=== PATIENT | female | born 1955 | race Caucasian/White ===

== ENCOUNTER → 2016-09-21 | Outpatient (CLI) | payer OTHER ==
--- NOTE | 2016-09-27 10:20 | MM ---
Reason for exam: screening (asymptomatic). Last mammogram was performed 5 years and 8 months ago. History: Patient is postmenopausal. Took hormonal contraceptives for 2 years. Physical Findings: A clinical breast exam by your physician is recommended on an annual basis and results should be correlated with mammographic findings. MG Screening Mammo w CAD Bilateral CC and MLO view(s) were taken. Prior study comparison: January 11, 2011, mammogram, performed at [place]. December 29, 2009, mammogram. The breast tissue is heterogeneously dense. This may lower the sensitivity of mammography. Finding: There are typically benign grouped, round, linear calcifications in the middle position of the right breast. There is no discrete abnormality. ASSESSMENT: Benign, BI-RAD 2 RECOMMENDATION: Routine screening mammogram of both breasts in 1 year.
== END | disposition home or self-care (01) ==
LOC: RADMAMWWP 09:12
PROVIDERS: ATTEND Family Medicine
DX: Z12.31 Encounter for screening mammogram for malignant neoplasm of breast (principal)

== ENCOUNTER → 2017-09-28 | Outpatient (CLI) | payer OTHER ==
--- NOTE | 2017-09-30 10:59 | MM ---
Reason for exam: screening (asymptomatic). Last mammogram was performed 1 year ago. History: Patient is postmenopausal. Took hormonal contraceptives for 2 years. Physical Findings: A clinical breast exam by your physician is recommended on an annual basis and results should be correlated with mammographic findings. MG 3D Screening Mammo W/Cad Bilateral CC and MLO view(s) were taken. Prior study comparison: September 21, 2016, bilateral MG screening mammo w CAD. January 11, 2011, mammogram, performed at [place]. The breast tissue is heterogeneously dense. This may lower the sensitivity of mammography. No significant changes when compared with prior studies. ASSESSMENT: Benign, BI-RAD 2 RECOMMENDATION: Routine screening mammogram of both breasts in 1 year.
== END | disposition home or self-care (01) ==
LOC: RADMAMWWP 07:11
PROVIDERS: ATTEND Family Medicine
DX: Z12.31 Encounter for screening mammogram for malignant neoplasm of breast (principal)
CPT/HCPCS: 77063; 77067

== ENCOUNTER → 2018-12-18 | Outpatient (CLI) | payer OTHER ==
--- NOTE | 2018-12-18 12:34 | BD ---
EXAMINATION TYPE: Axial Bone Density DATE OF EXAM: 12/18/2018 COMPARISON: NONE CLINICAL HISTORY: Postmenopausal female Height: 62 Weight: 124 FRAX RISK QUESTIONS: Alcohol (3 or more units per day): no Family History (Parent hip fracture): yes, father Glucocorticoids (More than 3mos): no (Ex: prednisone, prednisolone, methylprednisolone, dexamethasone, and hydrocortisone). History of Fracture in Adulthood: no Secondary Osteoporosis: 1. Type 1 Diabetes: no 2. Hyperthyroidism: no 3. Menopause before 45: no 4. Malnutrition: no 5. Chronic liver disease: no Rheumatoid Arthritis: no Current Tobacco Use: no RISK FACTORS HISTORY OF: Family History of Osteoporosis: yes Active: yes Diet low in dairy products/other sources of calcium: no Postmenopausal woman: yes Take estrogen and/or progesterone medications: not now How long: Hormonal contraceptives about 2 years Lost more than 2 inches in height since high school: no Frequent falls: no Poor Health: no Hyperparathyroidism: no Adrenal Insufficiency: no MEDICATIONS: Prednisone or other steroids: no Thyroid Medications: no Osteoporosis Medications: no Additional Medications: Additional History: EXAM MEASUREMENTS: Bone mineral densitometry was performed using the [employer] System. Bone mineral density as measured about the Lumbar spine is: ----- L1-L4(G/cm2): 1.217 T Score Values are as follows: ----- L2: -0.5 ----- L3: 1.9 ----- L4: 0.8 ----- L1-L4: 0.3 Bone mineral density BASELINE Bone mineral density about the R hip (g/cm2): 0.968 Bone mineral density about the L hip (g/cm2): 0.932 T Score values are as follows: -----R Neck: -0.5 -----L Neck: -0.8 -----R Total: 0.3 -----L Total: -1.4 Bone mineral density BASELINE IMPRESSION: Osteopenia (T Score between -2.5 and -1). There is slightly increased risk of fracture and the patient may be considered for treatment. Re-Screen 2-5 years. NOTE: T-SCORE=SD OF THE YOUNG ADULT MEAN.
--- NOTE | 2018-12-19 10:26 | MM ---
Reason for exam: screening (asymptomatic). Last mammogram was performed 1 year and 3 months ago. History: Patient is postmenopausal. Took hormonal contraceptives for 2 years. Physical Findings: A clinical breast exam by your physician is recommended on an annual basis and results should be correlated with mammographic findings. MG 3D Screening Mammo W/Cad Bilateral CC and MLO view(s) were taken. Prior study comparison: September 28, 2017, bilateral MG 3d screening mammo w/cad. September 21, 2016, bilateral MG screening mammo w CAD. The breast tissue is heterogeneously dense. This may lower the sensitivity of mammography. Finding: There are typically benign round, linear calcifications in the right breast. There is no discrete abnormality. ASSESSMENT: Benign, BI-RAD 2 RECOMMENDATION: Routine screening mammogram of both breasts in 1 year.
== END | disposition home or self-care (01) ==
LOC: RADMAMWWP 09:55
PROVIDERS: ATTEND Family Medicine
DX: Z12.31 Encounter for screening mammogram for malignant neoplasm of breast (principal); M85.80 Other specified disorders of bone density and structure, unspecified site; E55.9 Vitamin D deficiency, unspecified
CPT/HCPCS: 77063; 77067; 77080

== ENCOUNTER → 2020-03-05 | Outpatient (CLI) | payer MEDICARE ==
--- NOTE | 2020-03-07 10:21 | MM ---
Reason for exam: screening (asymptomatic). Last mammogram was performed 1 year and 2 months ago. History: Patient is postmenopausal. Took hormonal contraceptives for 2 years. Physical Findings: A clinical breast exam by your physician is recommended on an annual basis and results should be correlated with mammographic findings. MG 3D Screening Mammo W/Cad Bilateral CC and MLO view(s) were taken. Prior study comparison: December 18, 2018, bilateral MG 3d screening mammo w/cad. September 28, 2017, bilateral MG 3d screening mammo w/cad. The breast tissue is heterogeneously dense. This may lower the sensitivity of mammography. No significant changes when compared with prior studies. ASSESSMENT: Benign, BI-RAD 2 RECOMMENDATION: Routine screening mammogram of both breasts in 1 year.
== END | disposition home or self-care (01) ==
LOC: RADMAMWWP 15:13
PROVIDERS: ATTEND Family Medicine
DX: Z12.31 Encounter for screening mammogram for malignant neoplasm of breast (principal)
CPT/HCPCS: 77063; 77067

== ENCOUNTER 2021-02-16 09:15 | Observation (INO) | payer MEDICARE ==
--- NOTE | 2021-02-16 09:36 | ED ---
Chest Pain HPI - General Chief Complaint: Chest Pain Stated Complaint: chest pain Source: patient Mode of arrival: EMS Limitations: no limitations - History of Present Illness Initial Comments: Patient is a 65 old previously healthy female presents emergency room with a portal chest pain. She states that she ran a 5K this past week and a felt a little bit fatigued from it. Reports that she woke this morning began having some substernal chest pain with associated shortness of breath. Pain is located over the left chest without radiation. Started around 7 AM. EMS was called. They did provide her with 481 mg aspirins and 3 nitro. States that she did have improvement to her pain with the nitro administration. She denies previous history of cardiac disease. States that she's never had an EKG or stress test. She denies ripping or tearing sensation or back. No fevers, chills or cough. No other alleviating, precipitating or modifying factors - Related Data Home Medications Medication Instructions Recorded Confirmed Multivitamins, Thera [Multivitamin 1 tab PO DAILY 02/16/21 02/16/21 (formulary)] Allergies Allergy/AdvReac Type Severity Reaction Status Date / Time No Known Allergies Allergy Verified 02/16/21 12:11 Review of Systems ROS Statement: Those systems with pertinent positive or pertinent negative responses have been documented in the HPI. ROS Other: All systems not noted in ROS Statement are negative. EKG Findings - EKG Comments: EKG Findings:: EKG demonstrates a sinus rhythm with a ventricular rate of 64. CT interval 152. QRS 80. QTC of 418. No acute ST segment elevations or depressions. Inverted T-wave in lead 3 Past Medical History Past Medical History: No Reported History History of Any Multi-Drug Resistant Organisms: None Reported Past Surgical History: No Surgical Hx Reported Past Psychological History: No Psychological Hx Reported Smoking Status: Never smoker Past Alcohol Use History: Rare Past Drug Use History: None Reported General Exam Limitations: no limitations Course Vital Signs 02/16/21 02/16/21 02/16/21 09:16 09:25 10:00 Temperature 98.4 F Pulse Rate 70 67 68 Respiratory 18 17 12 Rate Blood Pressure 128/84 128/84 O2 Sat by Pulse 99 99 Oximetry 02/16/21 11:36 Temperature Pulse Rate 67 Respiratory 18 Rate Blood Pressure 142/84 O2 Sat by Pulse 100 Oximetry Chest Pain MDM - MDM Upon arrival patient is placed in room 17. Thorough history and physical exam is performed. 12-lead EKG was obtained. Patient placed on continuous pulse ox and cardiac monitoring. Laboratory studies were conducted. Troponin is negative. Chest x-ray to [facility] to acute process. Due to the patient's heart score being 3, I did recommend hospitalization. Patient agreed to this. Called and spoke with Dr. Stone who agreed to admit the patient. We will trend the patient's troponins and order an echo as well as cardiology consult. Patient agreed to the treatment plan and is awaiting a bed on the floor Disposition Clinical Impression: Chest pain Disposition: ADMITTED IP TO THIS HOSP Condition: Stable Is patient prescribed a controlled substance at d/c from ED?: No Decision to Admit Reason: Admit from EC Decision Date: 02/16/21 Decision Time: 11:23
[2021-02-16 09:54] LABS: Basophils % (A) 1 %; Eosinophils # (A) 0.1 k/uL (0-0.7); Eosinophils % (A) 2 %; HCT 40.3 % (34.0-46.0); HGB 13.6 gm/dL (11.4-16.0); Lymphocytes # (A) 1.8 k/uL (1.0-4.8); Lymphocytes % (A) 32 %; MCH 30.2 pg (25.0-35.0); MCHC 33.8 g/dL (31.0-37.0); MCV 89.3 fL (80.0-100.0); Mean Platelet Volume 7.4; Monocytes # (A) 0.3 k/uL (0-1.0); Monocytes % (A) 5 %; Neutrophils # (A) 3.3 k/uL (1.3-7.7); Neutrophils % (A) 59 %; Platelet Count 247 k/uL (150-450); RBC 4.51 m/uL (3.80-5.40); RDW 12.8 % (11.5-15.5); WBC 5.6 k/uL (3.8-10.6)
[2021-02-16 10:08] LABS: ALT 17 U/L (4-34); AST 26 U/L (14-36); African American GFR (CKD) >90 (>60 ml/min/1.73 sqM); Alkaline Phosphatase 87 U/L (38-126); Anion Gap 10 mmol/L; Blood Urea Nitrogen 19 mg/dL (7-17); Calcium 9.8 mg/dL (8.4-10.2); Carbon Dioxide 20 mmol/L (22-30); Chloride 109 mmol/L (98-107); Glucose 119 mg/dL (74-99); Lipase 120 U/L (23-300); Magnesium 1.9 mg/dL (1.6-2.3); Non-African American GFR(CKD) >90 (>60 ml/min/1.73 sqM); Potassium 4.3 mmol/L (3.5-5.1); Sodium 139 mmol/L (137-145); Total Bilirubin 0.5 mg/dL (0.2-1.3); Total Protein 6.8 g/dL (6.3-8.2)
[2021-02-16 10:09] LABS: INR 0.9 (<1.2); Partial Thromboplastin Time 23.7 sec (22.0-30.0)
--- NOTE | 2021-02-16 10:10 | XR ---
EXAMINATION TYPE: XR chest 2V DATE OF EXAM: 02/16/2021 COMPARISON: NONE HISTORY: Shortness of breath TECHNIQUE: Frontal and lateral views of the chest are obtained. FINDINGS: Scattered senescent parenchymal changes noted. Hyperinflation compatible with COPD. No evidence for infiltrate. No evidence for atelectasis. Heart size is stable. Mediastinal structures are stable and grossly unremarkable. No evidence for hilar prominence. Degenerative changes dorsal spine. IMPRESSION: 1. No evidence for acute pulmonary disease.
[2021-02-16] MEDS ORDERED: NALOXONE 0.4 MG/ML 1 ML VIAL IV PRN (11:24)
[2021-02-16] MEDS ORDERED: NITROGLYCERIN OINT 1 INCH/GM PACKET TOPICAL STA (11:25)
--- NOTE | 2021-02-16 12:14 | P.HPIM ---
History of Present Illness Patient developed pleasant 65-year-old female came in with complaints of chest pain which started today moderate the pain pressure-like sensation which started today morning reviewed by nitroglycerin. Patient is reactive medical problems patient did have a psychiatry and yesterday without any chest pain. Patient chest pain is substernal may have mild weakness in the left arm without any tingling numbness or pain in the left arm. Patient was also complaining of lightheadedness along with some mild shortness of breath and fatigue. Patient did eat around the time but doesn't believe the food has contributed to her chest pain patient just pain is nonpruritic. Patient does have some T-wave inversions in lead 3 no previous EKGs to compare with. Chest x-ray did not show any significant abnormality d-dimer is within normal limits. Troponin is negative. Patient is being admitted to rule out any acute coronary syndromes w [facility] cardiology consultation. Family history of coronary artery disease in her mother with first heart attack in her 60s REVIEW OF SYSTEMS: CONSTITUTIONAL: No fever, no malaise, no fatigue. HEENT: No recent visual problems or hearing problems. Denied any sore throat. CARDIOVASCULAR: No chest pain, orthopnea, PND, no palpitations, no syncope. PULMONARY: No shortness of breath, no cough, no hemoptysis. GASTROINTESTINAL: No diarrhea, no nausea, no vomiting, no abdominal pain. NEUROLOGICAL: No headaches, no weakness, no numbness. HEMATOLOGICAL: Denies any bleeding or petechiae. GENITOURINARY: Denies any burning micturition, frequency, or urgency. MUSCULOSKELETAL/RHEUMATOLOGICAL: Denies any joint pain, swelling, or any muscle pain. ENDOCRINE: Denies any polyuria or polydipsia. The rest of the 14-point review of systems is negative. PHYSICAL EXAMINATION: GENERAL: The patient is alert and oriented x3, not in any acute distress. Well developed, well nourished. HEENT: Pupils are round and equally reacting to light. EOMI. No scleral icterus. No conjunctival pallor. Normocephalic, atraumatic. No pharyngeal erythema. No thyromegaly. CARDIOVASCULAR: S1 and S2 present. No murmurs, rubs, or gallops. PULMONARY: Chest is clear to auscultation, no wheezing or crackles. ABDOMEN: Soft, nontender, nondistended, normoactive bowel sounds. No palpable organomegaly. MUSCULOSKELETAL: No joint swelling or deformity. EXTREMITIES: No cyanosis, clubbing, or pedal edema. NEUROLOGICAL: Gross neurological examination did not reveal any focal deficits. SKIN: No rashes. Assessment and plan -Chest pressure: We will rule out acute chronic syndromes., Patient will be evaluated by cardiology, patient is a nitro paste which will be continued. Echocardiac exam was ordered. We will obtain 2 more sets of troponins and EKGs. We cannot rule out a ruptured plaque because of her exertion yesterday. -Mild hyperchloremic metabolic acidosis: No further intervention at this time. DVT prophylaxis: Early ambulation Past Medical History Past Medical History: No Reported History History of Any Multi-Drug Resistant Organisms: None Reported Past Surgical History: No Surgical Hx Reported Past Psychological History: No Psychological Hx Reported Smoking Status: Never smoker Past Alcohol Use History: Rare Past Drug Use History: None Reported Medications and Allergies Home Medications Medication Instructions Recorded Confirmed Type Multivitamins, Thera [Multivitamin 1 tab PO DAILY 02/16/21 02/16/21 History (formulary)] Allergies Allergy/AdvReac Type Severity Reaction Status Date / Time No Known Allergies Allergy Verified 02/16/21 12:11 Physical Exam Vitals: Vital Signs Temp Pulse Resp BP Pulse Ox 02/16/21 11:36 67 18 142/84 100 02/16/21 10:00 68 12 128/84 99 02/16/21 09:25 67 17 02/16/21 09:16 98.4 F 70 18 128/84 99 Intake and Output 02/15/21 02/16/21 02/16/21 22:59 06:59 14:59 Other: Weight 56.699 kg Results CBC & Chem 7: 02/16/21 09:43 02/16/21 09:43 Labs: Abnormal Lab Results - Last 24 Hours (Table) 02/16/21 Range/Units 09:43 Chloride 109 H (98-107) mmol/L Carbon Dioxide 20 L (22-30) mmol/L BUN 19 H (7-17) mg/dL Glucose 119 H (74-99) mg/dL
[2021-02-17] MEDS ORDERED: ASPIRIN 81 MG PO SCH (09:00)
--- NOTE | 2021-02-17 09:50 | P.CRDCN ---
History of Present Illness Consult date: 02/17/21 History of present illness: HISTORY OF PRESENT ILLNESS: This is a 65 year old female with significant past medical history. 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 We have been asked to see the patient in consultation for chest pain. Patient examined at the bedside. Patient states she is usually very active and is a runner. She states she ran a 5K on Tuesday. On Tuesday she began having some chest pressure and shortness of breath and thought maybe it was secondary to running the day before so she just relaxed at home for the day. She states she woke up on Tuesday morning with a lot of chest heaviness and left arm weakness. She reported feeling very short of breath as well. She states she felt lightheaded. She denied any nausea or vomiting. She called EMS and was given aspirin and nitro in route to the hospital which relieved her pain. She states the pain was not worse with deep inspiration. She does not have pain upon chest wall palpation. She reports a family history of coronary artery disease and states her mother underwent open heart surgery when she was in her 50s. EKG reveals sinus mechanism with nonspecific ST-T wave changes Chest xray negative for acute process Laboratory data: WBC 5.6. Hemoglobin 13.6. Platelet count 247. D-dimer 0.29. Sodium 139. Potassium 4.3. BUN 19. Creatinine 0.60. Troponin negative 3. Current home cardiac medications include none REVIEW OF SYSTEMS: At the time of my exam: CONSTITUTIONAL: Denies fever or chills. HEENT: Denies blurred vision, vision changes, or eye pain. Denies hemoptysis CARDIOVASCULAR: Denies chest pain. Denies orthopnea. Denies PND. Denies palpitations RESPIRATORY: Denies shortness of breath. GASTROINTESTINAL: Denies abdominal pain. Denies nausea or vomiting. HEMATOLOGIC: Denies bleeding disorders. GENITOURINARY: Denies any blood in urine. SKIN: Denies pruitis. Denies rash. PHYSICAL EXAM: VITAL SIGNS: Reviewed. GENERAL: Well-developed in no acute distress. HEENT: Head is normocephalic. Pupils are equal, round. Sclerae anicteric. Mucous membranes of the mouth are moist. Neck supple. No JVD or thyromegaly LUNGS: Respirations even and unlabored. Lungs essentially clear to auscultation bilaterally. HEART: Regular rate and rhythm. S1 and S2 heard. ABDOMEN: Soft. Nondistended. Nontender. EXTREMITIES: Normal range of motion. No clubbing or cyanosis. Peripheral pulses intact. No lower extremity edema NEUROLOGIC: Awake and alert. Oriented x 3. ASSESSMENT: Chest pain, troponins negative 3 Family history of premature coronary artery disease PLAN: An acute coronary event has been ruled out Obtain 2D echo to assess cardiac structure and function Patient to undergo stress echo today to assess for stress induced ischemia Further recommendations pending patient course Nurse practitioner note has been reviewed by physician. Signing provider agrees with the documented findings, assessment, and plan of care. Past Medical History Past Medical History: No Reported History History of Any Multi-Drug Resistant Organisms: None Reported Past Surgical History: No Surgical Hx Reported Additional Past Anesthesia/Blood Transfusion Reaction / Comment(s): unknown Past Psychological History: No Psychological Hx Reported Smoking Status: Never smoker Past Alcohol Use History: Rare Past Drug Use History: None Reported Medications and Allergies Home Medications Medication Instructions Recorded Confirmed Type Multivitamins, Thera [Multivitamin 1 tab PO DAILY 02/16/21 02/16/21 History (formulary)] Allergies Allergy/AdvReac Type Severity Reaction Status Date / Time No Known Allergies Allergy Verified 02/16/21 12:11 Physical Exam Vitals: Vital Signs Temp Pulse Pulse Resp BP BP Pulse Ox 02/17/21 01:36 67 18 02/17/21 01:12 97.7 F 68 18 135/72 98 02/16/21 21:30 67 18 02/16/21 19:30 97.8 F 67 18 148/80 100 02/16/21 17:42 98.1 F 67 18 149/83 100 02/16/21 11:36 67 18 142/84 100 02/16/21 10:00 68 12 128/84 99 02/16/21 09:25 67 17 02/16/21 09:16 98.4 F 70 18 128/84 99 Intake and Output 02/16/21 02/17/21 02/17/21 22:59 06:59 14:59 Other: Voiding Method Toilet Toilet # Voids 1 2 Results 02/16/21 09:43 02/16/21 09:43 Cardiac Enzymes 02/16/21 02/16/21 02/16/21 Range/Units 09:43 09:43 12:10 AST 26 (14-36) U/L Troponin I <0.012 <0.012 (0.000-0.034) ng/mL 02/16/21 Range/Units 15:18 AST (14-36) U/L Troponin I <0.012 (0.000-0.034) ng/mL Coagulation 02/16/21 Range/Units 09:43 PT 10.0 (9.0-12.0) sec APTT 23.7 (22.0-30.0) sec CBC 02/16/21 Range/Units 09:43 WBC 5.6 (3.8-10.6) k/uL RBC 4.51 (3.80-5.40) m/uL Hgb 13.6 (11.4-16.0) gm/dL Hct 40.3 (34.0-46.0) % Plt Count 247 (150-450) k/uL Comprehensive Metabolic Panel 02/16/21 Range/Units 09:43 Sodium 139 (137-145) mmol/L Potassium 4.3 (3.5-5.1) mmol/L Chloride 109 H (98-107) mmol/L Carbon Dioxide 20 L (22-30) mmol/L BUN 19 H (7-17) mg/dL Creatinine 0.60 (0.52-1.04) mg/dL Glucose 119 H (74-99) mg/dL Calcium 9.8 (8.4-10.2) mg/dL AST 26 (14-36) U/L ALT 17 (4-34) U/L Alkaline Phosphatase 87 (38-126) U/L Total Protein 6.8 (6.3-8.2) g/dL Albumin 4.0 (3.5-5.0) g/dL Current Medications Generic Name Dose Route Start Last Admin Trade Name Freq PRN Reason Stop Dose Admin Naloxone HCl 0.2 mg 02/16/21 11:24 Naloxone 0.4 Mg/Ml 1 Ml Vial IV Q2M PRN Opioid Reversal Intake and Output 02/16/21 02/17/21 02/17/21 22:59 06:59 14:59 Other: Voiding Method Toilet Toilet # Voids 1 2 02/16/21 09:43 02/16/21 09:43
[2021-02-17 11:20] LABS: African American GFR (CKD) >90 (>60 ml/min/1.73 sqM); Anion Gap 7 mmol/L; Blood Urea Nitrogen 20 mg/dL (7-17); Calcium 9.7 mg/dL (8.4-10.2); Carbon Dioxide 28 mmol/L (22-30); Chloride 105 mmol/L (98-107); Glucose 98 mg/dL (74-99); Non-African American GFR(CKD) >90 (>60 ml/min/1.73 sqM); Potassium 4.4 mmol/L (3.5-5.1); Sodium 140 mmol/L (137-145)
[2021-02-17 13:37] VITALS: RESP 16
[2021-02-17 14:02] VITALS: BP 132/82; PULSE 75; TEMP 97.9
--- NOTE | 2021-02-17 14:03 | ECHOS ---
STRESS ECHOCARDIOGRAM DATE OF PROCEDURE: 02/17/2021 INDICATIONS: Chest pain. BASELINE HEART RATE: 65 BASELINE BLOOD PRESSURE: 117/63 MAXIMUM HEART RATE: 163 MAXIMUM BLOOD PRESSURE: 246/74 85% MPHR: 130 100% MPHR: 153 METS: 13.5 MAXIMUM STAGE REACHED: 5 TOTAL EXERCISE TIME: 13:19 CLINICAL INFORMATION: STRESS DATA: Heart rate 65, pressure 117/63 mmHg. Baseline EKG showed sinus mechanism. The patient exercised on the treadmill according to Kian protocol for a total of 13 minutes and achieved 13.5 METs. Max heart rate was 163, which is about 100% of maximum predicted heart rate, and maximum blood pressure was 214/75 mmHg. Clinically the patient had no symptoms. The EKG did not show any significant ST or T-wave abnormalities concerning for ischemia. CONCLUSION: 1. Excellent exercise tolerance. 2. No symptoms of chest pain or chest discomfort in response to exercise. 3. Excellent augmentation in the heart rate and blood pressure in response to exercise. 4. Normal EKG in response to exercise. MMODL / IJN: [id number] /
--- NOTE | 2021-02-18 13:30 | ECHOF ---
Referral Reason:chest pain MEASUREMENTS -------- HEIGHT: 157.5 cm WEIGHT: 56.7 kg BP: RVIDd: 2.2 cm (< 3.3) IVSd: 1.0 cm (0.6 - 1.1) LVIDd: 3.8 cm (3.9 - 5.3) LVPWd: 1.1 cm (0.6 - 1.1) IVSs: 1.4 cm LVIDs: 2.3 cm LVPWs: 1.6 cm LA Diam: 3.0 cm (2.7 - 3.8) LAESV Index (A-L): 32.68 ml/m Ao Diam: 2.4 cm (2.0 - 3.7) AV Cusp: 1.7 cm (1.5 - 2.6) LA Diam: 3.2 cm (2.7 - 3.8) MV EXCURSION: 15.792 mm (> 18.000) MV EF SLOPE: 50 mm/s (70 - 150) EPSS: 0.2 cm MV E Piter: 0.62 m/s MV DecT: 225 ms MV A Piter: 0.89 m/s MV E/A Ratio: 0.70 AR PHT: 510 ms RAP: 5.00 mmHg RVSP: 32.79 mmHg FINDINGS -------- Sinus rhythm. This was a technically good study. LV size, wall thickness and systolic function are normal, with an EF greater than 55%. The left manny tricular size is normal. The right ventricle is normal in size. LA is midly dilated 29-33ml/m2. The right atrial size is normal. There is mild aortic regurgitation. Mild mitral annular calcification present. Mild mitral regurgitation is present. Mild tricuspid regurgitation present. Right ventricular systolic pressure is normal at < 35 mmHg. There is no pulmonic regurgitation present. There is no pericardial effusion. CONCLUSIONS -------- 1. LV size, wall thickness and systolic function are normal, with an EF greater than 55%. 2. The left ventricular size is normal. 3. The right ventricle is normal in size. 4. LA is midly dilated 29-33ml/m2. 5. The right atrial size is normal. 6. There is mild aortic regurgitation. 7. Mild mitral annular calcification present. 8. Mild mitral regurgitation is present. 9. Mild tricuspid regurgitation present. 10. There is no pulmonic regurgitation present. 11. There is no pericardial effusion. DUST MOP MAKER: Yamilex Berrios RDCS
--- NOTE | 2021-02-18 15:47 | P.DS ---
Providers Date of admission: 02/16/21 11:25 Attending physician: Melissa Saravia Primary care physician: Dylan Ho [facility] Course: Final diagnoses -Chest pressure, troponins negative 3, acute coronary syndrome has been ruled out -We cannot rule out a ruptured plaque because of her exertion yesterday. -Mild hyperchloremic metabolic acidosis: No further intervention at this time. Chest pain troponins negative 3 Family history of premature coronary artery disease Mild hyperchloremic metabolic acidosis - no further intervention Acute coronary syndrome has been ruled out Discharge Disposition Patient is discharged home after a negative stress test in stable condition. Patient will f/u with cardiology associates and her PCP. Patient is given a script for a BMP in 2 days. Hospital course This is a pleasant 65 year old female admitted to the ER with complaints of chest pressure after running a 5k marathon. Complex of chest pain started on 02/16/2021, pain was moderate in nature pressure-like sensation, substernal, did not radiate to the arm, negative for tingling or numbness from his which was relieved with nitroglycerin. Patient does not have any significant PMH, and has only been hospitalized for childbirth in the past. She does not take any current medications. Pt does have a family history of premature heart disease, her mother had coronary artery bypass at the age of 60. Patient was evaluated in the ER, chest xray was negative. Serial troponins were negative x 3 values. Patient had an echocardiogram that revealed an EF of. Patient is a lifelong non-smoker. Patient does have some T-wave inversions in lead 3, no previous EKG to compare with. Chest x-ray did not reveal any significant abnormality, d-dimer is within normal limits. Patient underwent a stress echocardiogram that revealed excellent exercise tolerance, no symptoms of chest pain or chest discomfort in response to exercise, excellent augmentation heart rate and blood pressure response to exercise, normal EKG response to exercise. Patient was cleared by cardiology for discharge. Vital signs have remained stable this admission, afebrile, heart rate sinus rhythm 70s, blood pressure 132/82, 99% on room air. Patient's chemistry, metabolic, coagulation panels were all within normal limits. 02/17/2021 Patient is evaluated today sitting up in a chair, denies any current chest pain. She denies any headache, vision changes, jaw pain, arm pain, nausea, vomiting, shortness of breath, cough. Patient states that the chest pressure is diminishing in quality, and denies arm pain at this time. Vital signs remained stable, troponins negative 3. Patient had a stress echo completed today and was negative, patient was cleared by cardiology services for discharge. Patient's lungs remain clear, S1-S2 auscultated, negative for any peripheral edema. Patient will be discharged home and follow-up with her PCP. Thank you for allowing us to participate in the care of this patient. Please see medication reconciliation for a list of current medications Patient Condition at Discharge: Stable Plan - Discharge Summary Discharge Rx Participant: No New Discharge Prescriptions: Continue Multivitamins, Thera [Multivitamin (formulary)] 1 tab PO DAILY Discharge Medication List Multivitamins, Thera [Multivitamin (formulary)] 1 tab PO DAILY 02/16/21 [History] Follow up Appointment(s)/Referral(s): Gabino Domingo MD [STAFF PHYSICIAN] - 2 Weeks Dylan Ho DO [Primary Care Provider] - 02/20/21 3:20 pm ([place] [facility] with Ivette) Patient Instructions/Handouts: Noncardiac Chest Pain (DC) Discharge Disposition: HOME SELF-CARE
== END 2021-02-17 14:44 | disposition home or self-care (01) ==
LOC: EC 09:15 → 6NMEDSUR 11:25
PROVIDERS: ADMIT Hospitalist; ATTEND Hospitalist
DX: R07.89 Other chest pain (principal); R06.02 Shortness of breath; R42 Dizziness and giddiness; E87.2 Acidosis; Z20.822 Contact with and (suspected) exposure to COVID-19; Z82.49 Family history of ischemic heart disease and other diseases of the circulatory system
CPT/HCPCS: 99285; 36415; 93005; 93306; 93351; 85379; 83880; 80053; 80048; 83690; 83735; 84484; 85025; 85610; 85730; 87635; 71046; G0378 ×2

== ENCOUNTER → 2021-03-04 | Outpatient (CLI) | payer MEDICARE ==
[2021-03-05 05:39] LABS: Chol/HDL Ratio 3.45 Ratio; LDL Cholesterol,Calculated 120.9 mg/dL (0.0-131.0); VLDL Calculation 27.6 mg/dL (5.00-40.00)
[2021-03-05 05:40] LABS: HDL Cholesterol 60.5 mg/dL (40.00-60.00)
== END | disposition home or self-care (01) ==
LOC: LABWHC1 07:36
PROVIDERS: ATTEND Internal Medicine Interventional Cardiology
DX: E78.2 Mixed hyperlipidemia (principal)
CPT/HCPCS: 36415; 80061; 84450; 84460

== ENCOUNTER → 2021-11-06 | Outpatient (CLI) | payer MEDICARE ==
--- NOTE | 2021-11-09 11:02 | MM ---
Reason for Exam: Screening (asymptomatic). Last mammogram was performed 1 year(s) and 9 month(s) ago. Patient History: Menarche at age 10. First Full-Term at age 24. Postmenopausal. Patient used Hormonal Contraceptives for 2 years. Risk Values: Malia 5 year model risk: 1.9%. NCI Lifetime model risk: 6.2%. Prior Study Comparison: 09/28/2017 Bilateral Screening Mammogram, [facility]. 12/18/2018 Bilateral Screening Mammogram, [facility]. 03/05/2020 Bilateral Screening Mammogram, [facility]. Tissue Density: The breast tissue is heterogeneously dense. This may lower the sensitivity of mammography. Findings: Analyzed By CAD. There is no suspicious group of microcalcifications or new suspicious mass in either breast. Benign-appearing calcifications. No architectural distortion. Stable benign-appearing lymph nodes in the axilla. Overall Assessment: Benign, BI-RAD 2 Management: Screening Mammogram of both breasts in 1 year. A clinical breast exam by your physician is recommended on an annual basis and results should be correlated with mammographic findings. Electronically signed and approved by: Christopher Berry M.D. Radiologis
== END | disposition home or self-care (01) ==
LOC: RADMAMWWP 13:17
PROVIDERS: ATTEND Family Medicine
DX: Z12.31 Encounter for screening mammogram for malignant neoplasm of breast (principal); Z78.0 Asymptomatic menopausal state
CPT/HCPCS: 77063; 77067

== ENCOUNTER → 2023-01-18 | Outpatient (CLI) | payer MEDICARE ==
--- NOTE | 2023-01-19 13:18 | MM ---
Reason for Exam: Screening (asymptomatic). Last mammogram was performed 1 year(s) and 2 month(s) ago. Patient History: Menarche at age 10. First Full-Term at age 24. Postmenopausal. Patient has history of breast feeding. Patient used Hormonal Contraceptives for 2 years. Sister had breast cancer, age 75. Risk Values: Malia 5 year model risk: 3.4%. NCI Lifetime model risk: 10.2%. Prior Study Comparison: 12/18/2018 Bilateral Screening Mammogram, [facility]. 03/05/2020 Bilateral Screening Mammogram, [facility]. 11/06/2021 Bilateral MG 3D screening mammo w/cad, [facility]. Tissue Density: The breast tissue is heterogeneously dense. This may lower the sensitivity of mammography. Findings: Analyzed By CAD. Pattern is symmetrical and stable. Benign calcifications are within the right breast. There is thinning of indeterminate calcifications within the upper outer right breast. Additional evaluation of these calcifications recommended. Left breast: No suspicious groups of microcalcifications, spiculated or lobular masses, architectural distortion or other secondary signs of malignancy are mammographically apparent. Overall Assessment: Incomplete: need additional imaging evaluation, BI-RAD 0 Management: Diagnostic Mammogram of the right breast. A negative mammogram report should not preclude additional follow up of suspicious palpable abnormalities. Patient should continue monthly self breast exam. A clinical breast exam by your physician is recommended on an annual basis and results should be correlated with mammographic findings. Electronically signed and approved by: Gianni Wang D.O. Radiologis
== END | disposition home or self-care (01) ==
LOC: RADMAMWWP 08:15
PROVIDERS: ATTEND Family Medicine
DX: Z12.31 Encounter for screening mammogram for malignant neoplasm of breast (principal); Z78.0 Asymptomatic menopausal state; Z80.3 Family history of malignant neoplasm of breast
CPT/HCPCS: 77063; 77067

== ENCOUNTER → 2023-01-21 | Outpatient (CLI) | payer MEDICARE ==
--- NOTE | 2023-01-21 10:55 | MM ---
Reason for Exam: Additional evaluation requested from abnormal screening. Last screening mammogram was performed less than 1 month ago. Patient History: Menarche at age 10. First Full-Term at age 24. Postmenopausal. Patient has history of breast feeding. Patient used Hormonal Contraceptives for 2 years. Sister had breast cancer, age 75. Risk Values: Malia 5 year model risk: 3.4%. NCI Lifetime model risk: 10.2%. Tissue Density: Right: The breast tissue is heterogeneously dense. This may lower the sensitivity of mammography. Findings: Analyzed By CAD. The calcifications upper outer quadrant seen previously are not reproduced at this time and as such 6 month follow-up is recommended. Overall Assessment: Probably benign, BI-RAD 3 Management: Diagnostic Mammogram of the right breast. . Results were given to the patient verbally at the time of exam. Patient should continue monthly self-breast exams. A clinical breast exam by your physician is recommended on an annual basis. This exam should not preclude additional follow-up of suspicious palpable abnormalities. Note on Malia scores and lifetime risk: 1. A Malia score greater than 3% is considered moderate risk. If this is the case, consider specialist referral to assess eligibility for a risk reducing agent. 2. If overall lifetime risk for the development of breast cancer is 20% or higher, the patient may qualify for future screening with alternating mammogram and breast MRI. Electronically signed and approved by: Carlos Giles M.D. Radiologis
== END | disposition home or self-care (01) ==
LOC: RADMAMWWP 10:20
PROVIDERS: ATTEND Family Medicine
DX: R92.8 Other abnormal and inconclusive findings on diagnostic imaging of breast (principal); Z78.0 Asymptomatic menopausal state; Z80.3 Family history of malignant neoplasm of breast
CPT/HCPCS: 77065; G0279; 77061

== ENCOUNTER → 2024-01-23 | Outpatient (CLI) | payer MEDICARE ==
--- NOTE | 2024-02-09 21:09 | MM ---
Reason for Exam: Screening (asymptomatic). Last screening mammogram was performed 12 month(s) ago. Patient History: Menarche at age 10. First Full-Term at age 24. Postmenopausal. Patient has history of breast feeding. Patient used Hormonal Contraceptives for 2 years. Sister had breast cancer, age 75. Risk Values: Malia 5 year model risk: 3.4%. NCI Lifetime model risk: 9.7%. Prior Study Comparison: 11/06/2021 Bilateral MG 3D screening mammo w/cad, [facility]. 01/18/2023 Bilateral MG 3D screening mammo w/cad, [facility]. 01/21/2023 Right MG 3D work up w/cad RT, [facility]. Tissue Density: The breasts are heterogeneously dense, which may obscure small masses. Findings: Analyzed By CAD. Asymmetric densities are unchanged when comparing his various prior exams. There is no suspicious group of microcalcifications or new suspicious mass in either breast. Overall Assessment: Benign, BI-RAD 2 Management: Screening Mammogram of both breasts in 1 year. See note below in regards to the patient's increased 5 year Malia score. Patient should continue monthly self-breast exams. A clinical breast exam by your physician is recommended on an annual basis. This exam should not preclude additional follow-up of suspicious palpable abnormalities. Note on Malia scores and lifetime risk: 1. A Malia score greater than 3% is considered moderate risk. If this is the case, consider specialist referral to assess eligibility for a risk reducing agent. 2. If overall lifetime risk for the development of breast cancer is 20% or higher, the patient may qualify for future screening with alternating mammogram and breast MRI. Electronically signed and approved by: Aurea Chawla M.D. Radiologist
== END | disposition home or self-care (01) ==
LOC: RADMAMWWP 13:33
PROVIDERS: ATTEND Family Medicine
DX: Z12.31 Encounter for screening mammogram for malignant neoplasm of breast (principal); R92.333 Mammographic heterogeneous density, bilateral breasts; Z78.0 Asymptomatic menopausal state; Z80.3 Family history of malignant neoplasm of breast; Z92.0 Personal history of contraception
CPT/HCPCS: 77063; 77067

== ENCOUNTER 2024-02-21 09:55 | Observation (INO) | payer MEDICARE ==
[2024-02-21] MEDS: ASPIRIN 81 MG PO STA (10:24)
[2024-02-21] MEDS: NITROGLYCERIN OINT 1 INCH/GM PACKET TOPICAL STA (10:25)
[2024-02-21 10:40] LABS: Basophils % (A) 1 %; Eosinophils # (A) 0.1 k/uL (0-0.7); Eosinophils % (A) 2 %; HCT 41.4 % (34.0-46.0); HGB 13.5 gm/dL (11.4-16.0); Lymphocytes # (A) 1.6 k/uL (1.0-4.8); Lymphocytes % (A) 29 %; MCHC 32.6 g/dL (31.0-37.0); Mean Platelet Volume 7.4; Monocytes # (A) 0.3 k/uL (0-1.0); Monocytes % (A) 5 %; Neutrophils # (A) 3.5 k/uL (1.3-7.7); Neutrophils % (A) 63 %; Platelet Count 241 k/uL (150-450); RBC 4.66 m/uL (3.80-5.40); RDW 13.3 % (11.5-15.5); WBC 5.6 k/uL (3.8-10.6)
--- NOTE | 2024-02-21 10:41 | ED ---
General Adult HPI - General Chief complaint: Chest Pain Stated complaint: Chest Pain Time Seen by Provider: 02/21/24 10:00 Source: patient, RN notes reviewed, old records reviewed Mode of arrival: ambulatory Limitations: no limitations - History of Present Illness Initial comments: This is a 68-year-old female who presents to the emergency department with left- sided chest pain which is sharp in nature. Patient states she was on a run about 2 miles then when she started having left-sided chest pain. Patient states the pain also made her arm feel weird she states she was a having any weakness or numbness in the arm but it felt heavier. Patient denies any difficulty breathing or shortness of breath. Patient denies any diabetes hypertension high cholesterol but she does have a strong family history of heart disease with her mother having bypass surgery in her 70s. Patient states when she slowed down to a walk the pain did get better. Patient denies any sweating patient denies any nausea vomiting. Patient states the pain is not reproducible and currently the pain is better - Related Data Home Medications Medication Instructions Recorded Confirmed Multivitamins, Thera [Multivitamin 1 tab PO DAILY 02/16/21 02/21/24 (formulary)] Allergies Allergy/AdvReac Type Severity Reaction Status Date / Time No Known Allergies Allergy Verified 02/21/24 11:10 Review of Systems ROS Statement: Those systems with pertinent positive or pertinent negative responses have been documented in the HPI. ROS Other: All systems not noted in ROS Statement are negative. Past Medical History Past Medical History: Asthma History of Any Multi-Drug Resistant Organisms: None Reported Past Surgical History: No Surgical Hx Reported Additional Past Anesthesia/Blood Transfusion Reaction / Comment(s): unknown Past Psychological History: No Psychological Hx Reported Smoking Status: Never smoker Past Alcohol Use History: Rare Past Drug Use History: None Reported General Exam - General Exam Comments Initial Comments: GENERAL: Patient is well-developed and well-nourished. Patient is nontoxic and well- hydrated and is in mild distress. ENT: Neck is soft and supple. No significant lymphadenopathy is noted. Oropharynx is clear. Moist mucous membranes. Neck has full range of motion without eliciting any pain. EYES: The sclera were anicteric and conjunctiva were pink and moist. Extraocular movements were intact and pupils were equal round and reactive to light. Eyelids were unremarkable. PULMONARY: Unlabored respirations. Good breath sounds bilaterally. No audible rales rhonchi or wheezing was noted. CARDIOVASCULAR: There is a regular rate and rhythm without any murmurs gallops or rubs. ABDOMEN: Soft and nontender with normal bowel sounds. SKIN: Skin is clear with no lesions or rashes and otherwise unremarkable. NEUROLOGIC: Patient is alert and oriented x3. Cranial nerves II through XII are grossly in tact. Motor and sensory are also intact. Normal speech, volume and content. Symmetrical smile. MUSCULOSKELETAL: Normal extremities with adequate strength and full range of motion. LYMPHATICS: No significant lymphadenopathy is noted PSYCHIATRIC: Normal psychiatric evaluation. Limitations: no limitations Course Vital Signs 02/21/24 02/21/24 09:56 11:59 Temperature 97.6 F 98 F Pulse Rate 75 76 Respiratory 18 18 Rate Blood Pressure 139/80 133/70 O2 Sat by Pulse 99 98 Oximetry Medical Decision Making - Medical Decision Making Was pt. sent in by a medical professional or institution (, PA, CONCRETE INSPECTOR, urgent care, hospital, or residential...) When possible be specific @ -No Did you speak to anyone other than the patient for history (EMS, parent, family, police, friend...)? What history was obtained from this source @ -No Did you review nursing and triage notes (agree or disagree)? Why? @ -I reviewed and agree with nursing and triage notes Were old charts reviewed (outside hosp., previous admission, EMS record, old EKG, old radiological studies, urgent care reports/EKG's, residential records)? Report findings @ -No old charts were reviewed Differential Diagnosis? @ -Differential Chest Pain: Stable Angina, Unstable Angina, STEMI, NSTEMI Aortic Dissection, Pneumothorax, Musculoskeletal, Esophageal Spasm GERD, Cholecystitis, Pancreatitis, Zoster, this is not meant to be an all-inclusive list. EKG interpreted by me (3pts min.). @ -As above X-rays interpreted by me (1pt min.). @ -Chest x-ray shows no acute abnormality CT interpreted by me (1pt min.). @ -None done U/S interpreted by me (1pt. min.). @ -None done What testing was considered but not performed or refused? (CT, X-rays, U/S, labs)? Why? @ -None What meds were considered but not given or refused? Why? @ -None Did you discuss the management of the patient with other professionals (professionals i.e. , PA, CONCRETE INSPECTOR, lab, RT, psych nurse, social and political studies professor, triple air valve tester, teacher, wildlife conservation officer, case finisher)? Give summary @ -I spoke with sound physicians they agreed to admit the patient Was smoking cessation discussed for >3mins.? @ -No Was critical care preformed (if so, how long)? @ -No Were there social determinants of health that impacted care today? How? (Homelessness, low income, unemployed, alcoholism, drug addiction, transportation, low edu. Level, literacy, decrease access to med. care, longterm, rehab)? @ -No Was there de-escalation of care discussed even if they declined (Discuss DNR or withdrawal of care, Hospice)? DNR status @ -No What co-morbidities impacted this encounter? (DM, HTN, Smoking, COPD, CAD, Cancer, CVA, ARF, Chemo, Hep., AIDS, mental health diagnosis, sleep apnea, morbid obesity)? @ -None Was patient admitted / discharged? Hospital course, mention meds given and route, prescriptions, significant lab abnormalities, going to OR and other pertinent info. @ -Patient had aspirin and Nitropaste. Patient states the Nitropaste seem to make her arm pain feel much better. Patient has a strong family history of heart disease and the associated chest pain with arm pain and relief with nitro made me suspicious that this may be cardiac in origin and we will admit the patient to sound physicians and consult cardiology Undiagnosed new problem with uncertain prognosis? @ -No Drug Therapy requiring intensive monitoring for toxicity (Heparin, Nitro, Insulin, Cardizem)? @ -No Were any procedures done? @ -No Diagnosis/symptom? @ -Chest pain Acute, or Chronic, or Acute on Chronic? @ -Acute Uncomplicated (without systemic symptoms) or Complicated (systemic symptoms)? @ -Comp Side effects of treatment? @ -No Exacerbation, Progression, or Severe Exacerbation? @ -No Poses a threat to life or bodily function? How? (Chest pain, [place], [place], pneumonia, PE, COPD, DKA, ARF, appy, cholecystitis, CVA, Diverticulitis, Homicidal, Suicidal, threat to staff... and all critical care pts) @ -Yes this can lead to [place] and lead to endorgan dysfunction - Lab Data Result diagrams: 02/21/24 10:30 02/21/24 10:30 Lab Results 02/21/24 02/21/24 02/21/24 Range/Units 10:30 10:30 10:30 WBC 5.6 (3.8-10.6) k/uL RBC 4.66 (3.80-5.40) m/uL Hgb 13.5 (11.4-16.0) gm/dL Hct 41.4 (34.0-46.0) % MCV 89.0 (80.0-100.0) fL MCH 29.0 (25.0-35.0) pg MCHC 32.6 (31.0-37.0) g/dL RDW 13.3 (11.5-15.5) % Plt Count 241 (150-450) k/uL MPV 7.4 Neutrophils % 63 % Lymphocytes % 29 % Monocytes % 5 % Eosinophils % 2 % Basophils % 1 % Neutrophils # 3.5 (1.3-7.7) k/uL Lymphocytes # 1.6 (1.0-4.8) k/uL Monocytes # 0.3 (0-1.0) k/uL Eosinophils # 0.1 (0-0.7) k/uL Basophils # 0.0 (0-0.2) k/uL PT 9.8 L (10.0-12.5) sec INR 0.9 (<1.2) APTT 25.4 (22.0-30.0) sec D-Dimer 0.48 (<0.60) mg/L FEU Sodium 140 (137-145) mmol/L Potassium 4.2 (3.5-5.1) mmol/L Chloride 104 (98-107) mmol/L Carbon Dioxide 27 (22-30) mmol/L Anion Gap 9 mmol/L BUN 16 (7-17) mg/dL Creatinine 0.74 (0.52-1.04) mg/dL Est GFR (CKD-EPI)AfAm >90 (>60 ml/min/1.73 sqM) Est GFR (CKD-EPI)NonAf 83 (>60 ml/min/1.73 sqM) Glucose 87 (74-99) mg/dL Calcium 9.7 (8.4-10.2) mg/dL Magnesium 1.8 (1.6-2.3) mg/dL Total Bilirubin 0.8 (0.2-1.3) mg/dL AST 29 (14-36) U/L ALT 24 (4-34) U/L Alkaline Phosphatase 78 (38-126) U/L Troponin I (0.000-0.034) ng/mL Total Protein 7.0 (6.3-8.2) g/dL Albumin 4.5 (3.5-5.0) g/dL 02/21/24 Range/Units 10:30 WBC (3.8-10.6) k/uL RBC (3.80-5.40) m/uL Hgb (11.4-16.0) gm/dL Hct (34.0-46.0) % MCV (80.0-100.0) fL MCH (25.0-35.0) pg MCHC (31.0-37.0) g/dL RDW (11.5-15.5) % Plt Count (150-450) k/uL MPV Neutrophils % % Lymphocytes % % Monocytes % % Eosinophils % % Basophils % % Neutrophils # (1.3-7.7) k/uL Lymphocytes # (1.0-4.8) k/uL Monocytes # (0-1.0) k/uL Eosinophils # (0-0.7) k/uL Basophils # (0-0.2) k/uL PT (10.0-12.5) sec INR (<1.2) APTT (22.0-30.0) sec D-Dimer (<0.60) mg/L FEU Sodium (137-145) mmol/L Potassium (3.5-5.1) mmol/L Chloride (98-107) mmol/L Carbon Dioxide (22-30) mmol/L Anion Gap mmol/L BUN (7-17) mg/dL Creatinine (0.52-1.04) mg/dL Est GFR (CKD-EPI)AfAm (>60 ml/min/1.73 sqM) Est GFR (CKD-EPI)NonAf (>60 ml/min/1.73 sqM) Glucose (74-99) mg/dL Calcium (8.4-10.2) mg/dL Magnesium (1.6-2.3) mg/dL Total Bilirubin (0.2-1.3) mg/dL AST (14-36) U/L ALT (4-34) U/L Alkaline Phosphatase (38-126) U/L Troponin I <0.012 (0.000-0.034) ng/mL Total Protein (6.3-8.2) g/dL Albumin (3.5-5.0) g/dL Disposition Clinical Impression: Chest pain Disposition: ADMITTED IP TO THIS HOSP Referrals: Dylan Ho DO [Primary Care Provider] - 1-2 days Time of Disposition: 12:37
[2024-02-21 10:53] LABS: INR 0.9 (<1.2); Partial Thromboplastin Time 25.4 sec (22.0-30.0); Prothrombin Time 9.8 sec (10.0-12.5)
[2024-02-21 10:54] LABS: ALT 24 U/L (4-34); AST 29 U/L (14-36); African American GFR (CKD) >90 (>60 ml/min/1.73 sqM); Albumin 4.5 g/dL (3.5-5.0); Alkaline Phosphatase 78 U/L (38-126); Anion Gap 9 mmol/L; Blood Urea Nitrogen 16 mg/dL (7-17); Calcium 9.7 mg/dL (8.4-10.2); Carbon Dioxide 27 mmol/L (22-30); Chloride 104 mmol/L (98-107); Glucose 87 mg/dL (74-99); Magnesium 1.8 mg/dL (1.6-2.3); Non-African American GFR(CKD) 83 (>60 ml/min/1.73 sqM); Potassium 4.2 mmol/L (3.5-5.1); Sodium 140 mmol/L (137-145); Total Bilirubin 0.8 mg/dL (0.2-1.3)
--- NOTE | 2024-02-21 11:43 | XR ---
EXAMINATION TYPE: XR chest 2V DATE OF EXAM: 02/21/2024 11:28 AM CLINICAL INDICATION: Female, 68 years old with history of Chest Pain; [facility] COMPARISON: Chest radiographs from 02/21/2024 TECHNIQUE: XR chest 2V Frontal view of the chest. FINDINGS: Lungs/Pleura: There is no evidence of pleural effusion, focal consolidation, or pneumothorax. Pulmonary vascularity: Unremarkable. Heart/mediastinum: Cardiomediastinal silhouette is unremarkable. Musculoskeletal: No acute osseous pathology. IMPRESSION: No acute cardiopulmonary disease/process. [facility], , 02/21/2024 11:41 AM
[2024-02-21] MEDS ORDERED: NITROGLYCERIN SL TABS 0.4 MG TAB SUBLINGUAL PRN (12:39)
--- NOTE | 2024-02-21 13:14 | P.HPIM ---
History of Present Illness H&P Date: 02/21/24 History of Presenting Illness: Patient is a pleasant 68-year-old female with a past medical history of exercise-induced asthma. She presented to the hospital with a chief complaint of chest pain. 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 Patient reports this is not a normal occurrence for her and states that she recently just ran a marathon over the weekend without any difficulties. She does report family history of heart disease with her mother who was also very healthy but suddenly required bypass surgery in her early 70s. Patient reports she follows closely with a PCP and only medication regimen she takes is a daily multivitamin. She denies any recent illnesses or exposure to known ill contacts, headache, changes in vision or hearing, palpitations, shortness of breath, cough or congestion, abdominal pain, nausea, vomiting, or experiencing any numbness/focal weakness/swelling in her extremities. Patient denies any stating causing worsening chest pain but does report after she stopped her jog and began walking back to her car the pain in her chest and heaviness in her left arm did improve and has currently resolved. Upon arrival to our facility, patient underwent evaluation in the emergency department. Vital signs upon arrival show blood pressure 139/80, heart rate 75, respiratory rate 18, temp 97.6 F, and SpO2 of 99% on room air. EKG completed showing normal sinus rhythm at 72 bpm with no noted T wave or ST abnormality showing no signs of acute ischemia upon personal review and interpretation. Chest x-ray completed negative for acute cardiopulmonary process. Labs completed and reviewed. CBC unremarkable. Coagulation profile showing low PT of 9.8 otherwise normal findings. Normal D-dimer of 0.48. BMP unremarkable. Blood glucose 87. Magnesium 1.8. Liver profile normal findings. Troponin was negative at less than 0.012. Patient admitted under our services with consultation to cardiology. Review of systems: Pertinent positives and negatives as discussed in HPI, a complete review of systems was performed and all other systems are negative. Physical exam: Vital signs reviewed and stable. General: Nontoxic, no distress and appears stated age. Derm: Skin warm and dry, normal coloration for ethnicity. Head: Atraumatic, normocephalic and symmetric. Eyes: EOM's intact, no lid lag, and anicteric sclera Mouth: no lip lesions, mucus membranes moist Cardiovascular: regular rate and rhythm with normal S1S2, no murmur, positive posterior tibial pulses bilaterally, and cap refill < 2 seconds. Lungs: Respirations even, regular, and unlabored on room air. Lungs CTA bilaterally, no rhonchi, no rales, no wheezing, and no accessory muscle usage. Abdominal: soft, nontender to palpation, no guarding, no appreciable organomegaly Ext: ROM intact. No gross muscle atrophy, no edema, no contractures Neuro: Speech clear, face symmetrical and CN II-XII grossly intact with no noted focal neuro deficits Psych: Alert and oriented to person, place, time, and situation. Appropriate and pleasant affect. Assessment and Plan of Care: Chest pain, rule out acute coronary event -Cardiology consulted, appreciate recommendations -Telemetry monitoring -Trend troponins -Cardiac diet, NPO at midnight -Aspirin 81 mg daily and atorvastatin 40 mg nightly. -Lipid profile with a.m. labs. -Echocardiogram Exercise-induced asthma No signs of asthma attack/exacerbation. Order placed for DuoNebs as needed for shortness of breath and/or wheezing. Data and imaging reviewed: As stated above in HPI. The patient is admitted with an anticipated less than 2 midnight stay for evaluation of chest pain CODE STATUS: Full code DVT prophylaxis: Heparin Anticipated discharge date: Likely 24 to [address]: Home Patient was seen independently by Nurse Practitioner. This document was prepared using [employer] dictation software. Please allow for errors in remote mortgage underwriter while rare they do occur. Car Welch NP rendered care for this patient independently, reviewed the findings and plan as documented in the note above. I did not physically speak with or examine the patient on this date Past Medical History Past Medical History: Asthma History of Any Multi-Drug Resistant Organisms: None Reported Past Surgical History: No Surgical Hx Reported Additional Past Anesthesia/Blood Transfusion Reaction / Comment(s): unknown Past Psychological History: No Psychological Hx Reported Smoking Status: Never smoker Past Alcohol Use History: Rare Past Drug Use History: None Reported Medications and Allergies Home Medications Medication Instructions Recorded Confirmed Type Multivitamins, Thera [Multivitamin 1 tab PO DAILY 02/16/21 02/21/24 History (formulary)] Aspirin 81 mg PO DAILY 90 Days #90 tab 02/22/24 Rx Atorvastatin [Lipitor] 20 mg PO DAILY 90 Days #90 tablet 02/22/24 Rx Colchicine [Colcrys] 0.6 mg PO DAILY@0600 90 Days #90 02/22/24 Rx each Allergies Allergy/AdvReac Type Severity Reaction Status Date / Time No Known Allergies Allergy Verified 02/21/24 11:10 Physical Exam Vitals: Vital Signs Temp Pulse Resp BP Pulse Ox 02/21/24 13:02 74 18 134/85 100 02/21/24 11:59 98 F 76 18 133/70 98 02/21/24 09:56 97.6 F 75 18 139/80 99 Intake and Output 02/20/24 02/21/24 02/21/24 22:59 06:59 14:59 Other: Weight 53.977 kg Results CBC & Chem 7: 02/22/24 03:33 02/22/24 03:33 Labs: Abnormal Lab Results - Last 24 Hours (Table) 02/21/24 Range/Units 10:30 PT 9.8 L (10.0-12.5) sec
[2024-02-21] MEDS ORDERED: IPRATROPIUM-ALBUTEROL 3 ML NEB INHALATION PRN (15:01)
[2024-02-21] MEDS: HEPARIN SODIUM,PORCINE 5,000 UNIT/ML 1 ML VIAL SQ SCH (15:38)
[2024-02-21] MEDS: NITROGLYCERIN OINT 1 INCH/GM PACKET TOPICAL SCH (17:41)
--- NOTE | 2024-02-21 17:59 | CA ---
Transthoracic Echo Report Name: Irina Jerez Age: 68 Gender: F : 1955 Exam Date: 02/21/2024 14:56 Exam Location: [facility] Ht (in): 62 Wt (lb): 119 Ordering Physician: Car Weclh Attending/Referring Phys: Winch Operator Ana Sebastian RDCS Procedure CPT: Indications: eval structure and function Cardiac Hx: Technical Quality: Good Contrast 1: Total Dose (mL): Contrast 2: Total Dose (mL): MEASUREMENTS (Male / Female) Normal Values 2D ECHO LV Diastolic Diameter PLAX 3.7 cm 4.2 - 5.9 / 3.9 - 5.3 cm LV Systolic Diameter PLAX 2.2 cm IVS Diastolic Thickness 1.0 cm 0.6 - 1.0 / 0.6 - 0.9 cm LVPW Diastolic Thickness 1.2 cm 0.6 - 1.0 / 0.6 - 0.9 cm LV Relative Wall Thickness 0.6 RV Internal Dim ED PLAX 2.0 cm Aortic Root Diameter 3.3 cm LA Systolic Diameter LX 3.3 cm 3.0 - 4.0 / 2.7 - 3.8 cm LV Diastolic Volume MOD BP 51.0 cm??? 67 - 155 / 56 - 104 cm??? LV Systolic Volume MOD BP 20.5 cm??? 22 - 58 / 19 - 49 cm??? LV Ejection Fraction MOD BP 59.7 % >= 55 % LV Cardiac Index MOD BP 1303.4 cm???/min???m??? LV Diastolic Volume MOD 4C 50.7 cm??? LV Systolic Volume MOD 4C 25.4 cm??? LV Ejection Fraction MOD 4C 49.8 % LV Cardiac Index MOD 4C 1082.3 cm???/min???m??? LV Diastolic Length 4C 6.2 cm LV Systolic Length 4C 5.4 cm LV Diastolic Volume MOD 2C 47.4 cm??? LV Systolic Volume MOD 2C 16.1 cm??? LV Ejection Fraction MOD 2C 66.1 % LV Cardiac Index MOD 2C 1342.8 cm???/min???m??? LV Diastolic Length 2C 6.8 cm LV Systolic Length 2C 5.6 cm M-MODE Aortic Root Diameter MM 2.8 cm LA Systolic Diameter MM 3.0 cm LA Ao Ratio MM 1.1 AV Cusp Separation MM 1.9 cm DOPPLER AI Peak Velocity 366.5 cm/s AI Peak Gradient 53.7 mmHg AI Pressure Half Time 901.6 ms Mitral E Point Velocity 61.6 cm/s Mitral A Point Velocity 78.8 cm/s Mitral E to A Ratio 0.8 MV Deceleration Time 245.6 ms MV E' Velocity 6.1 cm/s Mitral E to MV E' Ratio 10.1 TR Peak Velocity 214.7 cm/s TR Peak Gradient 18.4 mmHg Right Ventricular Systolic Press 23.4 mmHg FINDINGS Left Ventricle Left ventricular ejection fraction is estimated at 55-60 %. Mildly increased posterior wall thickness. Normal left ventricular systolic function with no obvious regional wall motion abnormalities. Left ventricular cavity size normal. Right Ventricle Normal right ventricular size and function. Right ventricular systolic pressure within normal limits. Right Atrium Normal right atrial size. Left Atrium Normal left atrial size. Mitral Valve Structurally normal mitral valve. Trace mitral regurgitation. No mitral stenosis. Aortic Valve Trileaflet aortic valve. Moderate aortic regurgitation. No aortic stenosis. Tricuspid Valve Structurally normal tricuspid valve. Mild tricuspid regurgitation. No tricuspid stenosis. Pulmonic Valve Structurally normal pulmonic valve. Trace pulmonic regurgitation. No pulmonic stenosis. Pericardium No pericardial or pleural effusion. Aorta Normal size aortic root and proximal ascending aorta. CONCLUSIONS Diagnosis: Chest pain Preserved LV systolic function Thickened pericardium without effusion Previewed by: Dr. Mike Zhou MD (Electronically Signed) Final Date: 21 February 2024 17:58
[2024-02-21] MEDS: ATORVASTATIN 40 MG TAB PO SCH (20:49)
[2024-02-21] MEDS: COLCHICINE 0.6 MG EACH PO SCH (20:51)
[2024-02-22] MEDS: ACETAMINOPHEN TAB 325 MG TAB PO PRN (01:23)
[2024-02-22] MEDS: COLCHICINE 0.6 MG EACH PO SCH (06:00)
[2024-02-22 08:43] LABS: HCT 38.6 % (37.2-46.3); HGB 12.4 g/dL (12.0-15.0); MCH 28.8 pg (27.0-32.0); MCHC 32.1 g/dL (32.0-37.0); MCV 89.6 FL (80.0-97.0); Mean Platelet Volume 10.1 FL (9.5-12.2); NRBC Per 100 WBC 0 X 10*3/uL (0.00-0.01); Platelet Count 244 X 10*3/uL (140-440); RBC 4.31 X 10*6/uL (4.10-5.20); RDW 13.1 % (11.5-14.5); WBC 7.29 X 10*3/uL (4.50-10.00)
--- NOTE | 2024-02-22 08:51 | P.CRDCN ---
History of Present Illness History of present illness: This is Dr. Zhou dictating a consult on this patient The patient was interviewed and examined IMPRESSION / ASSESSMENT: Likely pericarditis. EKG shows diffuse early repolarization abnormality /ST elevation with very subtle DC depression V5 V6 and elevation of the DC of aVR Thickened pericardium on echo Normal LV function Normal troponins x 3 History of exercise-induced asthma PLAN: Stat dose seen 1.2 mg followed by 0.6 mg p.o. daily She has responded to colchicine. She has not had any further chest pain She looks comfortable I will discharge her and she follows with Dr. Domingo. In the interim I will also treat her with at least 20 mg of atorvastatin She should go home on 0.6 mg of colchicine daily for 2 weeks Adequate hydration Atorvastatin 20 mg p.o. daily Follow-up with Dr. Domingo HPI Sharp left-sided chest discomfort radiating to the left arm She had run about 2 miles and then started having left-sided chest discomfort No medications no known drug allergies Twelve-lead EKG was reviewed and shows ST elevation of 1 mm like early repolarization in lead I to aVF and V3-V6, fairly diffuse Very subtle DC elevation in aVR and DC depression in V5 and V6 ROS: No fever chills or rigors, no cough, phlegm or expectoration, no nausea, vomiting or diarrhea, no hematuria, dysuria, no musculoskeletal complaints, no strokes or seizures, no skin lesions. EXAMINATION: Normal blood pressure 134/85 mmHg 125/76 mmHg pulse rate in the 70s afebrile No murmurs no gallop no rub Normal breath sounds no rhonchi no crackles No JVD REVIEW OF LABS, ECG & MEDICAL DATA Normal twelve-lead EKG 2D echo shows thickened pericardium without effusion Preserved LV size and function Past Medical History Past Medical History: Asthma History of Any Multi-Drug Resistant Organisms: None Reported Past Surgical History: No Surgical Hx Reported Additional Past Anesthesia/Blood Transfusion Reaction / Comment(s): unknown Past Psychological History: No Psychological Hx Reported Smoking Status: Never smoker Past Alcohol Use History: Rare Past Drug Use History: None Reported Medications and Allergies Home Medications Medication Instructions Recorded Confirmed Type Multivitamins, Thera [Multivitamin 1 tab PO DAILY 02/16/21 02/21/24 History (formulary)] Allergies Allergy/AdvReac Type Severity Reaction Status Date / Time No Known Allergies Allergy Verified 02/21/24 11:10 Physical Exam Vitals: Vital Signs Temp Pulse Resp BP Pulse Ox 02/21/24 18:48 98 F 72 18 125/76 97 02/21/24 15:29 97.8 F 75 18 145/81 98 02/21/24 13:02 74 18 134/85 100 02/21/24 11:59 98 F 76 18 133/70 98 02/21/24 09:56 97.6 F 75 18 139/80 99 Intake and Output 02/21/24 02/21/24 02/21/24 06:59 14:59 22:59 Other: Weight 53.977 kg Results 02/22/24 03:33 02/21/24 10:30 Cardiac Enzymes 02/21/24 02/21/24 02/21/24 Range/Units 10:30 10:30 13:08 AST 29 (14-36) U/L Troponin I <0.012 <0.012 (0.000-0.034) ng/mL 02/21/24 Range/Units 17:14 AST (14-36) U/L Troponin I <0.012 (0.000-0.034) ng/mL Coagulation 02/21/24 Range/Units 10:30 PT 9.8 L (10.0-12.5) sec APTT 25.4 (22.0-30.0) sec CBC 02/21/24 Range/Units 10:30 WBC 5.6 (3.8-10.6) k/uL RBC 4.66 (3.80-5.40) m/uL Hgb 13.5 (11.4-16.0) gm/dL Hct 41.4 (34.0-46.0) % Plt Count 241 (150-450) k/uL Comprehensive Metabolic Panel 02/21/24 Range/Units 10:30 Sodium 140 (137-145) mmol/L Potassium 4.2 (3.5-5.1) mmol/L Chloride 104 (98-107) mmol/L Carbon Dioxide 27 (22-30) mmol/L BUN 16 (7-17) mg/dL Creatinine 0.74 (0.52-1.04) mg/dL Glucose 87 (74-99) mg/dL Calcium 9.7 (8.4-10.2) mg/dL AST 29 (14-36) U/L ALT 24 (4-34) U/L Alkaline Phosphatase 78 (38-126) U/L Total Protein 7.0 (6.3-8.2) g/dL Albumin 4.5 (3.5-5.0) g/dL Current Medications Generic Name Dose Route Start Last Admin Trade Name Freq PRN Reason Stop Dose Admin Albuterol/Ipratropium 3 ml 02/21/24 15:01 Ipratropium-Albuterol 3 Ml Neb INHALATION RT-Q2H PRN Shortness Of Breath Or Wheezing Aspirin 81 mg 02/22/24 09:00 Aspirin 81 Mg PO DAILY [facility] Atorvastatin Calcium 40 mg 02/21/24 21:00 Atorvastatin 40 Mg Tab PO HS MAY Colchicine 1.2 mg 02/21/24 19:30 Colchicine 0.6 Mg Each PO 02/22/24 05:00 DAILY [facility] Colchicine 0.6 mg 02/22/24 06:00 Colchicine 0.6 Mg Each PO DAILY [facility] Heparin Sodium (Porcine) 5,000 unit 02/21/24 16:00 02/21/24 15:38 Heparin Sodium,Porcine 5,000 Unit/Ml 1 Ml Vial SQ 5,000 unit Q8HR [facility] Administration Multivitamins 1 each 02/22/24 09:00 Multivitamins, Thera 1 Each Tab PO DAILY [facility] Nitroglycerin 0.4 mg 02/21/24 12:39 Nitroglycerin Sl Tabs 0.4 Mg Tab SUBLINGUAL Q5M PRN Chest Pain Intake and Output 02/21/24 02/21/24 02/21/24 06:59 14:59 22:59 Other: Weight 53.977 kg Patient Weight 02/22/24 06:59 Weight 53.977 kg 02/21/24 10:30 02/21/24 10:30
[2024-02-22] MEDS ORDERED: ASPIRIN 325 MG TAB PO SCH (09:00)
[2024-02-22 09:29] VITALS: RESP 18; TEMP 97.6
[2024-02-22] MEDS: ASPIRIN 81 MG PO SCH (09:29)
[2024-02-22] MEDS: MULTIVITAMINS, THERA 1 EACH TAB PO SCH (09:30)
[2024-02-22 10:54] VITALS: PULSE 67
--- NOTE | 2024-02-22 11:42 | P.DS ---
Providers Date of admission: 02/21/24 12:39 Expected date of discharge: 02/22/24 Attending physician: Zachary Chavez MD Consults: 02/21/24 12:39 Consult Physician Urgent Consulting Provider: [facility] Consult Reason/Comments: Chest pain Do you want consulting provider notified?: Yes Primary care physician: [facility] Course: Discharge Diagnosis: Pericarditis. Troponins were trended all negative at less than 0.012 x 3 draws. Echocardiogram was completed showing preserved EF of 55 to 60% with thickened pericardium without effusion concerning for pericarditis. Cardiology evaluated starting patient on colchicine 0.6 mg daily and recommending continuation of daily aspirin and atorvastatin. Patient currently free from any chest pain or complaints at this time. She has been cleared by cardiology for outpatient follow-up in their office in 1 week. Medically, patient is stable for discharge at this time. Prescriptions sent for aspirin 81 mg daily, atorvastatin 20 mg daily and colchicine 0.6 mg daily. Patient to follow-up outpatient with PCP in 1 to 2 days and with pt escort in 1 week. Chest pain, acute coronary event ruled out Exercise-induced asthma. No signs of asthma attack/exacerbation. Hospital Course: Patient is a pleasant 68-year-old female with a past medical history of exercise-induced asthma. She presented to the hospital with a chief complaint of chest pain. 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 Upon arrival to our facility, patient underwent evaluation in the emergency department. Vital signs upon arrival show blood pressure 139/80, heart rate 75, respiratory rate 18, temp 97.6 F, and SpO2 of 99% on room air. EKG completed showing normal sinus rhythm at 72 bpm with no noted T wave or ST abnormality showing no signs of acute ischemia upon personal review and interpretation. Chest x-ray completed negative for acute cardiopulmonary process. Labs completed and reviewed. CBC unremarkable. Coagulation profile showing low PT of 9.8 otherwise normal findings. Normal D-dimer of 0.48. BMP unremarkable. Blood glucose 87. Magnesium 1.8. Liver profile normal findings. Troponin was negative at less than 0.012. Patient admitted under our services with consultation to cardiology. Troponins were trended all negative at less than 0.012 x 3 draws. Echocardiogram was completed showing preserved EF of 55 to 60% with thickened pericardium without effusion concerning for pericarditis. Cardiology evaluated starting patient on colchicine 0.6 mg daily and recommending continuation of daily aspirin and atorvastatin. Patient currently free from any chest pain or c omplaints at this time. She has been cleared by cardiology for outpatient follow-up in their office in 1 week. Medically, patient is stable for discharge at this time. Prescription sent for aspirin 81 mg daily, atorvastatin 20 mg daily and colchicine 0.6 mg daily. Patient to follow-up outpatient with PCP in 1 to 2 days and with pt escort in 1 week. Physical exam: Vital signs reviewed and stable. General: Nontoxic, no distress and appears stated age. Derm: Skin warm and dry, normal coloration for ethnicity. Head: Atraumatic, normocephalic and symmetric. Eyes: EOM's intact, no lid lag, and anicteric sclera Mouth: no lip lesions, mucus membranes moist Cardiovascular: regular rate and rhythm with normal S1S2, no murmur, positive posterior tibial pulses bilaterally, and cap refill < 2 seconds. Lungs: Respirations even, regular, and unlabored on room air. Lungs CTA bilaterally, no rhonchi, no rales, no wheezing, and no accessory muscle usage. Abdominal: soft, nontender to palpation, no guarding, no appreciable organomegaly Ext: ROM intact. No gross muscle atrophy, no edema, no contractures Neuro: Speech clear, face symmetrical and CN II-XII grossly intact with no noted focal neuro deficits Psych: Alert and oriented to person, place, time, and situation. Appropriate and pleasant affect. A total of 34 minutes of time were spent preparing this complex discharge summary. Pt was discharged on 02/22/2024 at 11:41 AM. Patient was seen independently by Nurse Practitioner. This document was prepared using [employer] dictation software. Please allow for errors in [employer]adiene compressor operator while rare they do occur. Car Welch NP rendered care for this patient independently, reviewed the findings and plan as documented in the note above. I did not physically speak with or examine the patient on this date Patient Condition at Discharge: Stable Plan - Discharge Summary New Discharge Prescriptions: New Atorvastatin [Lipitor] 20 mg PO DAILY 90 Days #90 tablet Aspirin 81 mg PO DAILY 90 Days #90 tab Colchicine [Colcrys] 0.6 mg PO DAILY@0600 90 Days #90 each Continue Multivitamins, Thera [Multivitamin (formulary)] 1 tab PO DAILY Discharge Medication List Multivitamins, Thera [Multivitamin (formulary)] 1 tab PO DAILY 02/16/21 [History] Aspirin 81 mg PO DAILY 90 Days #90 tab 02/22/24 [Rx] Atorvastatin [Lipitor] 20 mg PO DAILY 90 Days #90 tablet 02/22/24 [Rx] Colchicine [Colcrys] 0.6 mg PO DAILY@0600 90 Days #90 each 02/22/24 [Rx] Follow up Appointment(s)/Referral(s): Gabino Domingo MD [STAFF PHYSICIAN] - 1 Week (Office will call her with appointment Please contact admitting physician. Patient is to go home on colchicine 0.6 mg p.o. daily and atorvastatin 20 mg p.o. daily) Dylan Ho DO [Primary Care Provider] - 1-2 days Patient Instructions/Handouts: Chest Pain (DC) Activity/Diet/Wound Care/Special Instructions: Activity: As tolerated. Take breaks as needed. Diet: Heart healthy and carb consistent diet. Avoid salts, or foods with hidden salts such as canned or boxed foods and frozen dinners. Extra salt makes your heart work harder and traps the fluid in your body for longer. Special Instructions: Take all of your medications as directed and remember to keep all of your doctor's appointments and follow-up as needed. Thank you for allowing us to participate in your care, it was truly a pleasure having you for our patient!!! . Discharge Disposition: HOME SELF-CARE
[2024-02-22 12:10] VITALS: BP 132/101
[2024-02-22 12:26] LABS: Chol/HDL Ratio 3.75 Ratio; LDL Cholesterol,Calculated 109.9 mg/dL (0.0-131.0); Magnesium 1.9 mg/dL (1.5-2.4)
[2024-02-22 12:46] LABS: ALT 20 U/L (8-44); AST 22 U/L (13-35); Albumin/Globulin Ratio 1.74 Ratio (1.60-3.17); Alkaline Phosphatase 80 U/L (41-126); Blood Urea Nitrogen 17.5 mg/dL (9.0-27.0); Calcium 9.4 mg/dL (8.7-10.3); Carbon Dioxide 22.9 mmol/L (21.6-31.8); Chloride 105 mmol/L (96-109); Globulin 2.3 g/dL (1.6-3.3); Glucose 96 mg/dL (70-110); Potassium 4.6 mmol/L (3.5-5.5); Sodium 140 mmol/L (135-145); Total Bilirubin 0.4 mg/dL (0.3-1.2); Total Protein 6.3 g/dL (6.2-8.2)
== END 2024-02-22 12:38 | disposition home or self-care (01) ==
LOC: EC 09:55 → 6NMEDSUR 12:39
PROVIDERS: ADMIT Internal Medicine; ATTEND Internal Medicine
DX: I31.9 Disease of pericardium, unspecified (principal); J45.990 Exercise induced bronchospasm; Z82.49 Family history of ischemic heart disease and other diseases of the circulatory system
CPT/HCPCS: 36415; 71046; 80053; 80061; 83735; 84484; 85025; 85027; 85379; 85610; 85730; 93005; 93306; 96372; 99285

== ENCOUNTER → 2024-08-15 | Outpatient (CLI) | payer MEDICARE ==
--- NOTE | 2024-08-15 11:14 | MM ---
Reason for Exam: Clinical finding. Last screening mammogram was performed 7 month(s) ago. Patient History: Menarche at age 10. First Full-Term at age 24. Postmenopausal. Patient has history of breast feeding. Patient used Hormonal Contraceptives for 2 years. Sister had breast cancer, age 75. Risk Values: Malia 5 year model risk: 3.4%. NCI Lifetime model risk: 9.3%. Prior Study Comparison: 01/18/2023 Bilateral MG 3D screening mammo w/cad, [facility]. 01/21/2023 Right MG 3D work up w/cad RT, [facility]. 01/23/2024 Bilateral MG 3D screening mammo w/cad, [facility]. Tissue Density: Left: The breasts are heterogeneously dense, which may obscure small masses. Findings: Analyzed By CAD. No evidence for mass or distortion. No suspicious calcifications,. Overall Assessment: Benign, BI-RAD 2 Management: Screening Mammogram of both breasts in 5 months. . Results were given to the patient verbally at the time of exam. Patient should continue monthly self-breast exams. A clinical breast exam by your physician is recommended on an annual basis. This exam should not preclude additional follow-up of suspicious palpable abnormalities. Note on Malia scores and lifetime risk: 1. A Malia score greater than 3% is considered moderate risk. If this is the case, consider specialist referral to assess eligibility for a risk reducing agent. 2. If overall lifetime risk for the development of breast cancer is 20% or higher, the patient may qualify for future screening with alternating mammogram and breast MRI. [facility], , 08/15/2024 10:56 AM. Electronically signed and approved by: Carlos Giles M.D. Radiologis
== END | disposition home or self-care (01) ==
LOC: RADMAMWWP 10:40
PROVIDERS: ATTEND Family Medicine
DX: R92.333 Mammographic heterogeneous density, bilateral breasts (principal); N64.4 Mastodynia; Z78.0 Asymptomatic menopausal state; Z80.3 Family history of malignant neoplasm of breast; Z92.0 Personal history of contraception
CPT/HCPCS: 77065; G0279; 77061